=== PATIENT | female | born 1940 | race Caucasian/White ===

== ENCOUNTER 2021-12-11 05:16 | Inpatient (IN) | payer OTHER ==
[~2021-12-11] VITALS: Ht 157.5 cm; Wt 68.0 kg
[2021-12-11 05:23] VITALS: BP_SYST 132
[2021-12-11] MEDS ORDERED: AZITHROMYCIN 500 MG in NS 250 ML IV ONE (05:30)
[2021-12-11] MEDS ORDERED: DEXAMETHASONE SOD PHOSPHATE 10 MG/ML VIAL IVP ONE (05:30)
[2021-12-11] MEDS ORDERED: cefTRIAXone 1 GM IVPB PREMIX 50 ML IV ONE (05:30)
[2021-12-11] MEDS ORDERED: LORazepam 2 MG/ML VIAL ONE (05:40)
[2021-12-11] MEDS ORDERED: LORazepam 2 MG/ML VIAL IM ONE (05:45)
[2021-12-11] MEDS ORDERED: ONDANSETRON HCL 4 MG/2 ML VIAL IVP ONE (05:45)
[2021-12-11] MEDS ORDERED: AZITHROMYCIN 500 MG/VIAL (ZITHROMAX) IV ONE (06:02)
[2021-12-11] MEDS ORDERED: PIPERACILLIN/TAZOBACTAM 3.375 GM/VIAL (ZOSYN) IV ONE (06:14)
[2021-12-11] MEDS ORDERED: PIPERACILLIN/TAZO 3.375 GM in NS 50 ML IV ONE (06:15)
[2021-12-11] MEDS ORDERED: ALBUTEROL SULFATE 0.083% 2.5 MG/3 ML VIAL.NEB INH ONE (06:15)
[2021-12-11] MEDS ORDERED: guaiFENesin 200 MG/10 ML UDC PO ONE (07:00)
[2021-12-11] MEDS ORDERED: LORazepam 2 MG/ML VIAL IVP ONE ×2 (07:15→18:30)
[2021-12-11] MEDS ORDERED: IPRATROPIUM BROM 0.5 MG/2.5 ML VIAL.NEB (ATROVENT) INH ONE ×3 (07:45)
[2021-12-11 08:25] LABS: BASOPHILS # (AUTO) 0.1 K/uL (0.0-0.2); BASOPHILS % (AUTO) 0.6 % (0.0-2.0); EOSINOPHILS # (AUTO) 0.1 K/uL (0.0-0.4); EOSINOPHILS % (AUTO) 0.7 % (0.0-4.0); HEMATOCRIT 38.4 % (36-48); LYMPHOCYTES # (AUTO) 3.4 K/uL (1.0-5.5); LYMPHOCYTES % (AUTO) 25.4 % (20.5-51.5); MEAN CORPUSCULAR VOLUME 84 fL (79.0-98.0); MONOCYTES # (AUTO) 0.7 K/uL (0.0-1.0); MONOCYTES % (AUTO) 5.5 % (1.7-9.3); NEUTROPHILS # (AUTO) 9.1 K/uL (1.8-7.7); NEUTROPHILS % (AUTO) 67.8 % (40.0-70.0); PLATELET COUNT (AUTO) 443 K/uL (130-430); RED BLOOD CELL COUNT(AUTO) 4.59 MIL/uL (4.2-6.2); RED CELL DISTRIBUTION WIDTH 15.4 % (9.0-15.0); WHITE BLOOD COUNT (AUTO) 13.5 K/uL (4.8-10.8)
[2021-12-11 08:54] LABS: ANION GAP 18 (5-15); CHLORIDE 101 mmol/L (98-107); CREATININE 1.12 mg/dL (0.55-1.30); GLUCOSE 202 mg/dL (70-99); UREA NITROGEN, BLOOD 16 mg/dL (8-21)
[2021-12-11 09:07] LABS: FIBRINOGEN 261 mg/dL (200-400)
[2021-12-11 09:21] LABS: ALANINE AMINOTRANSFERASE 15 U/L (12-78); ALBUMIN 3.5 g/dL (3.4-4.8); ASPARTATE AMINOTRANSFERASE 22 U/L (10-37); LACTATE DEHYDROGENASE 155 U/L (81-234); TOTAL BILIRUBIN 0.4 mg/dL (0.0-1.0)
[2021-12-11 09:27] LABS: POTASSIUM 2.8 mmol/L (3.5-5.1)
[2021-12-11] MEDS ORDERED: NACL 0.9% 1,000 ML IV ONE ×2 (09:45→10:15)
[2021-12-11 10:42] LABS: C-REACTIVE PROTEIN QUANT < 0.2 mg/dL (0-0.5)
[2021-12-11 10:49] LABS: BILIRUBIN,URINE NEGATIVE (NEGATIVE); BLOOD, URINE 1+ (NEGATIVE); CLARITY/URINE CLEAR (CLEAR); COLOR,URINE YELLOW (YELLOW); GLUCOSE,URINE NEGATIVE (NEGATIVE); KETONES,URINE TRACE (NEGATIVE); LEUKOCYTE ESTERASE ,URINE 3+ (NEGATIVE); NITRITE, URINE NEGATIVE (NEGATIVE); PH,URINE 5.5 (5.0-8.0); PROTEIN URINE TRACE (NEGATIVE); UROBILINOGEN,URINE 0.2 (0.2-1.0)
[2021-12-11 11:18] LABS: BACTERIA,URINE MODERATE /HPF (None Seen); WBC,URINE 20-50 /HPF (0-3)
[2021-12-11] MEDS ORDERED: HEPARIN 25,000 UNITS/D5W 250ML 250 ML IV SCH (12:00)
[2021-12-11] MEDS ORDERED: HEPARIN SODIUM,PORCINE 5,000 UNITS/ML VIAL IV ONE (12:00)
[2021-12-11] MEDS: PIPERACILLIN/TAZO 3.375/DEX-IS 50 ML IV SCH (13:29)
[2021-12-11] MEDS ORDERED: KCL 40 mEq in 100 mL (PREMIX) 100 ML IV ONE (15:15)
[2021-12-11] MEDS ORDERED: KCL 20 mEq in 100 mL (PREMIX) 200 ML IV ONE (15:48)
[2021-12-11] MEDS ORDERED: ACETAMINOPHEN 325 MG TABLET PO ONE (18:30)
[2021-12-11] MEDS ORDERED: NALOXONE HCL 0.4 MG/ML AMP (NARCAN) IVP PRN (18:30)
[2021-12-11] MEDS ORDERED: PIPERACILLIN/TAZO 3.375/DEX-IS 50 ML IV SCH (22:00)
[2021-12-11 22:28] VITALS: BP_SYST 116
[2021-12-12] MEDS ORDERED: PIPERACILLIN/TAZOBACTAM 3.375 GM/VIAL (ZOSYN) IV ONE (01:01)
[2021-12-12] MEDS: PIPERACILLIN/TAZO 3.375/DEX-IS 50 ML IV SCH ×4 (01:13→20:40)
[2021-12-12 04:13] VITALS: BP_SYST 147
[2021-12-12 07:19] LABS: ALANINE AMINOTRANSFERASE 23 U/L (12-78); ANION GAP 7 (5-15); ASPARTATE AMINOTRANSFERASE 28 U/L (10-37); CALCIUM 8.3 mg/dL (8.4-11.0); CHLORIDE 107 mmol/L (98-107); CREATININE 0.77 mg/dL (0.55-1.30); GLUCOSE 123 mg/dL (70-99); POTASSIUM 3.6 mmol/L (3.5-5.1); TOTAL BILIRUBIN 0.5 mg/dL (0.0-1.0); UREA NITROGEN, BLOOD 13 mg/dL (8-21)
[2021-12-12 07:26] LABS: BASOPHILS # (AUTO) 0.1 K/uL (0.0-0.2); BASOPHILS % (AUTO) 0.6 % (0.0-2.0); EOSINOPHILS % (AUTO) 0.1 % (0.0-4.0); HEMATOCRIT 32.3 % (36-48); LYMPHOCYTES # (AUTO) 1.3 K/uL (1.0-5.5); LYMPHOCYTES % (AUTO) 11.9 % (20.5-51.5); MEAN CORPUSCULAR VOLUME 82 fL (79.0-98.0); MONOCYTES # (AUTO) 1.6 K/uL (0.0-1.0); MONOCYTES % (AUTO) 14.7 % (1.7-9.3); NEUTROPHILS # (AUTO) 7.7 K/uL (1.8-7.7); NEUTROPHILS % (AUTO) 72.7 % (40.0-70.0); PLATELET COUNT (AUTO) 340 K/uL (130-430); RED BLOOD CELL COUNT(AUTO) 3.93 MIL/uL (4.2-6.2); RED CELL DISTRIBUTION WIDTH 15.5 % (9.0-15.0); WHITE BLOOD COUNT (AUTO) 10.5 K/uL (4.8-10.8)
[2021-12-12 08:00] VITALS: BP_SYST 117
[2021-12-12] MEDS ORDERED: ALPRAZolam 0.25 MG TABLET PO PRN (09:45)
[2021-12-12] MEDS: IPRATROPIUM/ALBUTEROL SULFATE 3 ML AMPUL.NEB (DUONEB) INH SCH ×4 (09:45→23:22)
[2021-12-12] MEDS ORDERED: LIP10 PO (10:21)
[2021-12-12] MEDS ORDERED: FERR236T3 PO (10:21)
[2021-12-12] MEDS ORDERED: PANT20TA2 PO (10:21)
[2021-12-12] MEDS ORDERED: METF-518 PO (10:21)
[2021-12-12 12:00] VITALS: BP_SYST 128
[2021-12-12 16:15] VITALS: BP_SYST 120
[2021-12-12] MEDS ORDERED: PANTOPRAZOLE SODIUM 40 MG/VIAL (PROTONIX) IVP ONE (17:00)
[2021-12-12 20:33] VITALS: BP_SYST 110
[2021-12-12] MEDS: ACETAMINOPHEN 325 MG TABLET PO PRN (20:39)
[2021-12-12] MEDS: ONDANSETRON HCL 4 MG/2 ML VIAL IVP PRN (20:40)
[2021-12-13 00:52] VITALS: BP_SYST 105
[2021-12-13] MEDS: IPRATROPIUM/ALBUTEROL SULFATE 3 ML AMPUL.NEB (DUONEB) INH SCH ×6 (03:00→23:00)
[2021-12-13] MEDS: PIPERACILLIN/TAZO 3.375/DEX-IS 50 ML IV SCH ×3 (06:54→21:18)
[2021-12-13 07:40] VITALS: BP_SYST 102
[2021-12-13] MEDS: FERROUS GLUCONATE 324 MG TABLET PO SCH (08:19)
[2021-12-13] MEDS: ATORVASTATIN 10 MG TABLET PO SCH (08:19)
[2021-12-13] MEDS: ACETAMINOPHEN 325 MG TABLET PO PRN (08:20)
[2021-12-13] MEDS: ONDANSETRON HCL 4 MG/2 ML VIAL IVP PRN ×2 (08:32→21:05)
[2021-12-13] MEDS ORDERED: PANTOPRAZOLE SODIUM 40 MG/VIAL (PROTONIX) IVP SCH (09:00)
[2021-12-13] MEDS ORDERED: PANTOPRAZOLE SODIUM 40 MG TAB PO SCH (09:00)
[2021-12-13 12:00] VITALS: BP_SYST 103
[2021-12-13] MEDS: HYDROcodone/ACETAMIN 5-325 MG TAB (NORCO/ VICODIN) PO PRN ×2 (15:01→21:18)
[2021-12-13 16:05] VITALS: BP_SYST 101
[2021-12-13 20:00] VITALS: BP_SYST 127
[2021-12-13] MEDS ORDERED: METOCLOPRAMIDE HCL 10 MG/2 ML VIAL IVP ONE (22:15)
[2021-12-13] MEDS: SUCRALFATE 1 GM TABLET PO SCH (23:00)
[2021-12-14] VITALS (7 sets, daily range): BP systolic 118–140
[2021-12-14] MEDS: IPRATROPIUM/ALBUTEROL SULFATE 3 ML AMPUL.NEB (DUONEB) INH SCH ×5 (03:00→19:00)
[2021-12-14] MEDS: SUCRALFATE 1 GM TABLET PO SCH ×7 (03:00→23:00)
[2021-12-14] MEDS: PIPERACILLIN/TAZO 3.375/DEX-IS 50 ML IV SCH ×3 (05:26→22:07)
[2021-12-14] MEDS ORDERED: SIMETHICONE 40 MG/0.6 ML ML ONE (07:20)
[2021-12-14 08:08] LABS: PROTHROMBIN TIME 10.3 SECS (9.5-12.5)
[2021-12-14] MEDS ORDERED: PANTOPRAZOLE SODIUM 40 MG TAB PO SCH (09:00)
[2021-12-14] MEDS: MIDAZOLAM HCL 5 MG/5 ML VIAL ONE ×3 (10:08→10:13)
[2021-12-14] MEDS: fentaNYL CITRATE/PF 100 MCG/2 ML AMP ONE ×2 (10:08→10:11)
[2021-12-14] MEDS: ATORVASTATIN 10 MG TABLET PO SCH (11:20)
[2021-12-14] MEDS: FERROUS GLUCONATE 324 MG TABLET PO SCH (11:20)
[2021-12-14] MEDS: ACETAMINOPHEN 325 MG TABLET PO PRN (12:08)
[2021-12-14] MEDS: METOCLOPRAMIDE HCL 10 MG/2 ML VIAL IVP PRN ×2 (14:12→20:43)
[2021-12-14] MEDS: PANTOPRAZOLE SODIUM 40 MG TAB PO SCH (20:43)
[2021-12-14] MEDS: ONDANSETRON HCL 4 MG/2 ML VIAL IVP PRN (22:07)
[2021-12-15 00:04] VITALS: BP_SYST 136
[2021-12-15] MEDS: SUCRALFATE 1 GM TABLET PO SCH ×4 (03:00→15:00)
[2021-12-15] MEDS: PIPERACILLIN/TAZO 3.375/DEX-IS 50 ML IV SCH ×2 (05:45→14:21)
[2021-12-15] MEDS: IPRATROPIUM/ALBUTEROL SULFATE 3 ML AMPUL.NEB (DUONEB) INH SCH ×3 (07:36→15:32)
[2021-12-15 08:00] VITALS: BP_SYST 137
[2021-12-15] MEDS: ATORVASTATIN 10 MG TABLET PO SCH (09:24)
[2021-12-15] MEDS: FERROUS GLUCONATE 324 MG TABLET PO SCH (09:24)
[2021-12-15] MEDS: PANTOPRAZOLE SODIUM 40 MG TAB PO SCH (09:25)
[2021-12-15 15:04] VITALS: BP_SYST 131
[2021-12-15 16:00] VITALS: BP_SYST 138
[2021-12-15] MEDS ORDERED: SUCR1TAB2 PO (16:42)
[2021-12-15] MEDS ORDERED: ONDA-8 TL (16:42)
[2021-12-15] MEDS ORDERED: AUG875 PO (17:03)
[2021-12-15 17:30] VITALS: BP_SYST 131
== END 2021-12-15 18:05 | disposition home or self-care (01) | DRG 177 ==
LOC: SED 05:16 → SIC 10:43 → STU 21:32 → SMU 12-14 18:52
PROVIDERS: ADMIT Specialist; ATTEND Specialist
PROC: 0D758ZZ Dilation of Esophagus, Via Natural or Artificial Opening Endoscopic (ICD-10-PCS; principal; 2021-12-14 10:15)
DX: J69.0 Pneumonitis due to inhalation of food and vomit (principal); J96.01 Acute respiratory failure with hypoxia; E87.2 Acidosis; K22.2 Esophageal obstruction; J40 Bronchitis, not specified as acute or chronic; K44.9 Diaphragmatic hernia without obstruction or gangrene; E87.6 Hypokalemia; E11.9 Type 2 diabetes mellitus without complications; K21.00 Gastro-esophageal reflux disease with esophagitis, without bleeding; R13.10 Dysphagia, unspecified; Z20.822 Contact with and (suspected) exposure to COVID-19; K31.7 Polyp of stomach and duodenum; Z86.16 Personal history of COVID-19
CPT/HCPCS: 36415; 36600; 71045; 71275; 76376; 80053; 81000; 82803-TC; 83605; 83615; 83880; 84484; 85025; 85379; 85384; 85610-TC; 86140; 87040; 87086; 93005; 94640; 94760; 96365; 96375; 99291; 99292; C9113; G0378; J0456; J0696; J1100; J1644; J2060; J2250; J2405; J2543; J2765; J3010; J3480; J7613; Q9967